=== PATIENT | male | born 1960 | race Caucasian/White ===

== ENCOUNTER 2018-05-13 14:25 | Inpatient (IN) | payer OTHER ==
[~2018-05-13] VITALS: Ht 177.8 cm; Wt 99.8 kg
[2018-05-13 14:25] VITALS: BP 166/94
[~2018-05-13 14:25] MED LIST: ASPIRIN325 PO; ATORVASTATIN CA20 MG PO; CARVEDILOL3.125 MG PO; COZAAR 25 MG TA25 M1 PO; EFFIENT10 MG PO
[2018-05-13 15:03] LABS: ABSOLUTE NEUTROPHILS 4.2 thou/uL (1.4-8.2); BASOPHILS 0.4 % (0.0-2.0); EOSINOPHILS 1.3 % (0.0-3.0); HEMATOCRIT 46.3 % (42.0-52.0); HEMOGLOBIN 16.1 gm/dL (14.0-18.0); LYMPHOCYTES 31.5 % (24.0-44.0); MCH 31.3 pg (26.0-34.0); MCHC 34.9 g/dL (28.0-37.0); MCV 89.9 fL (80.0-100.0); MONOCYTES 5.9 % (1.0-8.0); PLATELET COUNT 275 thou/uL (150-400); POLYS 60.9 % (36.0-66.0); RBC 5.15 mil/uL (4.50-6.00); RDW 12.8 % (10.5-14.5); WBC 6.9 thou/uL (4.0-11.0)
[2018-05-13 15:07] LABS: ANION GAP 9 mmol/L (7-16); BUN 11 mg/dL (7-18); CALCIUM 9.3 mg/dL (8.5-10.1); CHLORIDE 103 mmol/L (98-107); CO2 28 mmol/L (21-32); CREATININE 1.1 mg/dL (0.7-1.3); GLUCOSE 94 mg/dL (74-106); POTASSIUM 4.1 mmol/L (3.5-5.1); SODIUM 140 mmol/L (136-145)
[2018-05-13 15:16] LABS: ALBUMIN 4.2 g/dL (3.4-5.0); SGOT 25 U/L (15-37); SGPT 50 U/L (30-65); TOTAL BILIRUBIN 0.6 mg/dL (<0.1-1.0); TROPONIN-I <0.06 ng/mL (<0.06)
[2018-05-13 16:43] VITALS: BP 129/80
[2018-05-13 16:44] LABS: CHOLESTEROL 170 mg/dL (<200); HDL CHOLESTEROL 36 mg/dL (>40); LDL CHOLESTEROL 63 mg/dL (<100); TC:HDL 4.7 Ratio (Not establshd); TRIGLYCERIDE 356 mg/dL (<150); VLDL 71 mg/dL (<40)
[2018-05-13 17:18] VITALS: BP 117/82
[2018-05-13 17:58] VITALS: BP 134/90
--- NOTE | 2018-05-13 19:50 | NUR ---
57 YO MALE ADMITTED TO 362 FROM ER BY PHILIPPE. A&OX4, IV INTACT IN R AC. DENIES CHEST PAIN AT THIS TIME, SPOUSE AT BEDSIDE.
--- NOTE | 2018-05-13 22:07 | EKG ---
[address] [place] [address] ELECTROCARDIOGRAM REPORT Name: ROSIO LORENZO Room #: 362-P ADM IN M.R.#: [id number] Admission: 05/13/18 Attend Phys: Ruel Rosales Discharge: Date of : 60 Report #: [id number] THIS REPORT FOR: //name// [facility] ED Test Date: 2018-05-13 Test Time: 14:32:06 Pat Name: ROSIO LORENZO Department: Room: 362 P Gender: M Central Processing Tech: JOSÉ MANUEL : 1960 Requested By: Erasmo Pascual Order Number: [id number] MD: Timur Carter Measurements Intervals [place] Rate: 68 P: 5 NH: 178 QRS: -43 QRSD: 102 T: 33 QT: 398 QTc: 424 Interpretive Statements Sinus rhythm Compared to ECG 01/17/2016 07:00:36 anterior T-wave abnormalities resolved Electronically Signed On 05-13-2018 22:07:28 LANGUAGE PATHOLOGIST by Timur Carter [email or web address] <ELECTRONICALLY SIGNED> By: Timur Carter MD 05/13/18 2207 1431 [facility] Timur Carter MD /TITA
[2018-05-14] VITALS (8 sets, daily range): BP systolic 108–137; BP diastolic 72–737
--- NOTE | 2018-05-14 04:33 | NUR ---
ASSUMED CARE OF PT AT 1900. ADMISSION ASSMT COMPLETED, PT ANSWERED ALL QUESTIONS. A&Ox4, COOPERATIVE. DENIED PAIN, STATED CP WAS MORE OF A PRESSURE THAT FELT LIKE HE NEEDED TO BELCH BUT COULD NOT. SR ON TELE, STRIPS PLACED IN CHART. NPO AT MIDNIGHT FOR POSSIBLE PROCEDURE TODAY. NO ACUTE DISTRESS. RESTING. AT BEDSIDE. PROGRESSING TOWARDS GOALS. WILL CONTINUE TO PROVIDE CARE AND MONITOR.
--- NOTE | 2018-05-14 10:01 | NUR ---
Patient left for cardiac cath around 904.
--- NOTE | 2018-05-14 14:17 | CATHLAB ---
[facility] [address] [place] [address] INVASIVE PROCEDURE REPORT Name: ROSIO LORENZO Room #: 362-P ADM IN M.R.#: [id number] Admission: 05/13/18 Attend Phys: Ruel Rodríguez Discharge: Date of : 60 Date of Service: 05/14/18 1416 Report #: [id number] THIS REPORT FOR: //name// APPROVED REPORT Study performed: 05/14/2018 09:04:01 Patient Details Patient Status: In-Patient Room #: The patient is a 57 year-old male Event Personnel Saeid Sanchez Band Tacker, Saurabh Canseco RN RN, Alonzo Redding Brown, Roberta Monitor Procedures Performed Left Heart Cath w/or w/o Coronaries [id number] [facility] Indication Dyspnea, Unstable angina , Chest pain Risk Factors Hypercholesterolemia, Coronary Artery DiseaseHypertension Previous Procedures/Diagnoses Previous PCI Procedure Narrative The Right Wrist^ was infiltrated with 1% Lidocaine subcutaneous anesthesia. A TRANSRADIAL SLENDER 6F GLIDESHEATH KIT #[id number] sheath was inserted into the . Coronary angiography was performed using coronary diagnostic catheters. The right coronary system was accessed and visualized with a 5FR JL 3.5 #[id number] JR 4 #[id number] catheter. The left coronary system was accessed and visualized with a 5FR JL 3.5 #[id number] catheter. The left ventricle was accessed and visualized with a 5FR PIG 145 ANGLED #[id number] catheter. Left ventricular/Aortic Valve gradient assessed via catheter pullback. Intraoperative Conscious Sedation Sedation start time: 10.05 Case end Time: 13.35 Fentanyl 50 mcg Versed 1 mg Fluoro Time: 5.46 minutes Dose: DAP 7602.00 cGycm2 8.18 mGy [facility] [address] [place] [address] INVASIVE PROCEDURE REPORT Name: ROSIO LORENZO Room #: 362-[facility] IN .R.#: [id number] Admission: 05/13/18 Attend Phys: Ruel Rodríguez Discharge: Date of : 60 Date of Service: 05/14/18 1416 Report #: [id number] Contrast Type and Amount: Omnipaque 80 ml Coronary Angiography The patient's coronary anatomy is right dominant. Diagnostic Cath Left Main This is a large caliber vessel, patent with no flow-limiting lesions. LAD This is a moderate size caliber vessel, traversing the anterior wall and terminating at the apex. There is a stent in the proximal/mid segment, patent with mild restenosis. Beyond the stent, there is mild diffuse disease in the midsegment of the LAD, 30%. Diagonal 1 This is a patent vessel, with no flow-limiting lesions. Circumflex This is a moderate to large caliber vessel, patent with mild disease proximally, 20%. OM1 This is a patent vessel, with no flow-limiting lesions. OM2 This is a patent vessel, with no flow-limiting lesions. Right Coronary This is a dominant vessel with a patent stent in the mid segment, with mild restenosis. Within the proximal segment, there is mild diffuse disease,30%. R PDA This is a patent vessel, with no flow-limiting lesions. RPLV This is a patent vessel, with no flow-limiting lesions. Left Ventriculography The left ventricle is normal in size with normal contractility. The left ventricular ejection fraction is estimated to be >55%. Hemodynamics The aortic pressure is 114/84 mmHg with a mean of 94 mmHg. The left ventricular pressure is 102/20 mmHg with a mean of mmHg. The left ventricular end diastolic pressure is 18 mmHg. There was no gradient across the aortic valve upon pullback. Pullback from the left ventricle to the aorta revealed no gradient across the aortic valve. Conclusion 1. Patent stents in the LAD and RCA, with mild restenosis. [facility] [address] [place] [address] INVASIVE PROCEDURE REPORT Name: ROSIO LORENZO Room #: 362-P [facility] IN M.R.#: [id number] Admission: 05/13/18 Attend Phys: Ruel Rodríguez Discharge: Date of : 60 Date of Service: 05/14/18 1416 Report #: [id number] 2. Normal LV systolic function. 3. Recommend risk factor management. <ELECTRONICALLY SIGNED> By: Saeid Sanchez MD 05/14/18 1416 141 [id number] Saeid Sanchez MD /INF
--- NOTE | 2018-05-14 14:23 | NUR ---
REC CONSULT FOR CAREGIVER BREAKDOWN. MET WITH PATIENT, AND OTHER FAMILY MEMBERS PRESENT. PATIENT REPORTS HE IS DISCHARGING HOME AND WANTS TO LEAVE SOON POSSIBLE. REPORTS SHE CAN ASSIST PATIENT AT HOME IF NEEDED. PATIENT DID NOT EXPRESS ANY CAREGIVER ISSUES. HE HAS NO HEALTH INSURANCE BUT ON THE 15TH OF THIS MONTH PATIENT WILL HAVE HEALTH INSURANCE. PATIENT DENIED NEED FOR SAFETY NET CLINIC INFORMATION. PLAN HOME INDEPENDENTLY NO NEEDS ID.
--- NOTE | 2018-05-14 15:22 | NUR ---
Assumed care of patient at 0700. Alert and oriented x4. Had cardiac cath today, negative. No intervention. Returned to floor with right radial closure device post cardiac cath. Followed post-procedure instructions. Decreased air to closure device over an hour. Band remained in place an hour after air removed. Band then removed and gauze and transparent dressing applied. No bleeding noted. Remains with good pulses. Vitals stable. No complaints of pain. Okay to [place] per Dr. Sanchez. Discharge orders received. Reviewed with patient at bedside, including post cardiac cath care instructions. Verbalizes understanding. IV and telemetry discontinued. Belongings gathered. No prescriptions or items locked up in hospital. Transported to private vehicle via wheelchair to [place] home.
== END 2018-05-14 15:14 | disposition home or self-care (01) | DRG 287 ==
LOC: ER 14:25 → EROBS 16:25 → 3W 16:44
PROVIDERS: Emergency Medicine; ADMIT Hospitalist
DX: I25.10 Atherosclerotic heart disease of native coronary artery without angina pectoris (principal); I42.9 Cardiomyopathy, unspecified; I10 Essential (primary) hypertension; E78.1 Pure hyperglyceridemia; E78.5 Hyperlipidemia, unspecified; Z79.899 Other long term (current) drug therapy; Z87.891 Personal history of nicotine dependence; Z95.5 Presence of coronary angioplasty implant and graft; Z79.82 Long term (current) use of aspirin
CPT/HCPCS: 10879